=== PATIENT | male | born 1955 | race Caucasian/White ===

== ENCOUNTER 2022-11-21 12:53 | Emergency (ER) | payer BC, SELFPAY ==
[2022-11-21 12:53] VITALS: BP 167/113; PULSE 78; RESP 18; TEMP 36.1; O2SAT 95; BMI 28.7
--- NOTE | 2022-11-21 14:45 | VDLE_ITS ---
Reason For Study: Swelling RIGHT GSV is normal. CFV is compressible, spontaneous, phasic, competent and demonstrates normal augmentation. FV is compressible, spontaneous, phasic, competent and demonstrates normal augmentation. POP V is compressible, spontaneous, phasic, competent and demonstrates normal augmentation. T/P Trunk is compressible. PTV is compressible. RT PerV is compressible. Nonvascularized structure noted in the proximal calf muscle at area of pain that measures 0.50 x 1.2 cm. Procedure This is a venous duplex using B-mode, color flow and spectral Doppler. Exam performed portable in ED. A preliminary report was called and/or faxed to ED RN. VL/Venous Duplex US, Unilateral Interpretation Summary Deep veins of the right lower extremity are patent and compressible segmentally . There is no evidence of right lower extremity deep vein thrombosis. The right great sapheno us vein appears patent and compressible segmentally. Nonvascularized structure noted in the proximal calf muscle at area of pain ovidio t measures 0.50 x 1.2 cm. Ordering Physician: Joan Cm Referring Physician: Martín Pillai Performed By: hCeryl Blood RVT
--- NOTE | 2022-11-21 14:57 | EX.ED.DYSGE1 ---
HPI History of Present Illness Chief Complaint: Lower Extremity Injury Detail of Chief Complaint: Right leg pain and swelling Informant: patient Onset/Context/Timing Onset: Weeks Context: Gradual Onset Narrative Narrative: Patient presents with a 1 week history of right leg pain and swelling. He states he actually flew to [place] around November 03. While there he had some intermittent calf pain. Flying back around the or so he had increased right leg pain. He denies chest pain or shortness of breath. He states he has been taking daily aspirin since noting the leg pain. [facility] Medical History (Updated 11/21/22 @ 15:[address] Joan Cm MD) Hx of gastroesophageal reflux (GERD) Medical History no medical history Home Medications ciprofloxacin HCl 500 mg tablet 500 mg PO BID ##20 03/05/14 [Rx Last Taken Unknown] metronidazole 500 mg tablet 500 mg PO Q6H #40 tabs 03/05/14 [Rx Last Taken Unknown] oxycodone-acetaminophen 5 mg-325 mg tablet 1 - 2 tab PO Q4H PRN PRN Pain #20 tabs 03/05/14 [Rx Last Taken Unknown] Allergy/AdvReac Type Severity Reaction Status Date / Time No Known Allergies Allergy Verified 11/21/22 13:50 Surgical History (Updated 11/21/22 @ 14:[address] Joan mC MD) H/O right knee surgery Social History Smoking Status: Former smoker ROS ROS ED Constitutional Constitutional ED: Denies chills or fever(s) Eyes Eyes: Denies change in vision or discharge from eye(s) ENT ENT ED: Denies discharge from eye(s), rhinorrhea or sore throat Cardiovascular Cardiovascular: Denies chest pain or palpitations Respiratory/Chest Respiratory/Chest: Denies cough or dyspnea Gastrointestinal Gastrointestinal: Denies abdominal pain, nausea or vomiting Musculoskeletal Musculoskeletal: Reports extremity pain; Denies back pain Integumentary Denies Abrasions or rash Neurologic Neurologic: Denies headache(s) or weakness Psychiatric Psychiatric: Denies anxiety or depression Allergic/Immunologic Allergic/Immunologic ED: Denies lip swelling or urticaria EXAM Physical Exam Const Vital Signs: 11/21/22 12:53 Temperature 97 F L Temperature Source Temporal Pulse Rate 78 Respiratory Rate 18 Blood Pressure 167/113 H Blood Pressure Mean 131 Pulse Ox 95 Oxygen Delivery Method Room Air Positive well nourished and well developed General Appearance ED: well developed HEENT Reports normocephalic and head/scalp atraumatic Eyes PERRL and EOMs intact bilaterally Neck supple Chest Wall inspection of chest normal and palpation of chest normal Resp normal respiratory effort and clear to auscultation bilaterally Cardio regular rate and regular rhythm GI normal to inspection, nondistended, normoactive bowel sounds Palpation: soft Extremity normal to inspection Extremity Narrative: No significant right lower extremity edema. Vessels in the right foot are slightly less prominent when compared to the left. Mild calf tenderness with palpation. No palpable cords. Strong distal pulses with normal sensation and good range of motion. Neuro oriented x3 and no sensory deficits noted Sensorium / Orientation: alert Motor Exam: strength 5/5 throughout Psych mental status grossly normal Skin no rashes or lesions noted MDM MDM MDM Narrative Medical decision making narrative: Venous ultrasound of the right lower extremity obtained. I am advised by nursing staff that the tech reported no evidence of DVT. Patient will be reassured and follow-up instructions given. Discharge Plan Triage Chief Complaint: Lower Extremity Injury ED Provider: Joan Cm Dx/Rx/DC Orders Clinical Impression: Edema, Strain of right calf muscle Instructions: ED Peripheral Edema, Unilateral Prescriptions: No Action metronidazole 500 MG tablet 500 mg PO Q6H Qty: 40 0RF ciprofloxacin HCl 500 MG tablet 500 mg PO BID Qty: 20 0RF oxycodone-acetaminophen 1 TABLET tablet 1 - 2 tab PO Q4H PRN PRN (Reason: Pain) Qty: 20 0RF Primary Care Provider: Martín Pillai Referrals: Martín Pillai MD [Primary Care Provider] - 1 Week if not improving Disposition Disposition: Home, Self Care
== END 2022-11-21 15:32 | disposition home or self-care (01) ==
PROVIDERS: Emergency Provider Emergency Medicine; PCP Family Medicine; Visit Provider Emergency Medicine
DX: S86.111A Strain of other muscle(s) and tendon(s) of posterior muscle group at lower leg level, right leg, initial encounter (principal); R60.0 Localized edema; Z87.891 Personal history of nicotine dependence; X58.XXXA Exposure to other specified factors, initial encounter
CPT/HCPCS: 93971; 99282

== ENCOUNTER 2023-09-07 07:58 | Day surgery (SDC) | payer BC, SELFPAY ==
[2023-09-07 08:15] VITALS: BP 169/134; PULSE 75; RESP 16; TEMP 36.2; O2SAT 97
[2023-09-07] MEDS: Lidocaine Jelly 2% 20 ML Syringe (URO-JET) 1 APPLIC (08:19)
== END 2023-09-07 08:45 | disposition home or self-care (01) ==
LOC: EN 08:01
PROVIDERS: PCP Family Medicine; Referring Provider Family Medicine; Visit Provider Surgery
PROC: F00ZJWZ Instrumental Swallowing and Oral Function Assessment using Swallowing Equipment (ICD-10-PCS; CPT 43235; principal; 2023-09-07 07:55)
DX: K21.9 Gastro-esophageal reflux disease without esophagitis (principal)
CPT/HCPCS: 91010

== ENCOUNTER 2023-09-14 08:54 | Day surgery (SDC) | payer BC, SELFPAY ==
--- NOTE | 2023-09-14 | GASB_PTH ---
PATHOLOGY RESULTS PATIENT: MARCOS ANDRE LOC: EN U#:[id number] AGE/SX: 68/M ROOM: RE09/14/[address]: Dr. Shyam Teran MD : 1955 BED: DIS: 09/14/2023 SPEC #: [id number] RECD: 09/14/23 13:13 STATUS: DARRIN REDimitris #: [id number] LACI: 09/14/23 00:[address]: Shyam Teran DEPT: SURGICAL PATHOLOGY RECD BY: Mark Martinez ENTERED: 09/14/23 13:14 SP TYPE: Gastric Bx OTHR DR: Dr. Martín Pillai MD Tissues: Gastric mucous membrane Cecum, NOS Rectum, NOS Procedures: Special Stain Group II Surgery Specimen Level IV Alcian Blue/PAS (control) HEADER OPERATION: Colonoscopy, EGD, PH probe placement, biopsy, polypectomy PRE-OP DIAGNOSIS: Rectal mass, GERD TISSUE SUBMITTED: A - Gastroesophageal junction biopsy, B - Polyp cecum, C - Polyp rectum MICROSCOPIC DIAGNOSIS A. Gastroesophageal junction, biopsy: Fragments of gastroesophageal mucosa with chronic inflammation. Intestinal metaplasia (goblet cell metaplasia) not identified. See comment. B. Polyp cecum, polypectomy: Tubular adenoma. C. 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 See comment. SJ:rg 09/17/2023 COMMENT A. Alcian blue/PAS stain with matched control is used in the evaluation of the specimen. Correlation with clinical, endoscopic findings and appropriate follow up are necessary. MICROSCOPIC DESCRIPTION Slides are reviewed. GROSS DESCRIPTION A - Received in fixative is one container labeled with the patient's name and designated GE junction biopsy. The specimen consists of two irregular fragments of light anderson soft tissue that in aggregate measure 0.6 x 0.4 x 0.1 cm. The specimen is totally submitted in one cassette. B - Received in fixative is one container labeled with the patient's name and designated polyp cecum. The specimen consists of a pink-red polyp measuring 1.0 x 0.8 x 0.6 cm. The presumed base is inked. The polyp is bisected and submitted entirely in one cassette. C - Received in fixative is one container labeled with the patient's name and designated polyp rectum. The specimen consists of two cauliflower-like pink polyps measuring 3.0 x 3.0 x 3.0 cm and 2.0 x 2.0 x 1.5 cm. Also present in the container are multiple fragments of anderson-pink soft tissue measuring in aggregate 2.5 x 2.0 x 0.3 cm. Sections of the larger polyps shows a threat in the center of the polyp. The smaller polyp is bisected and the larger polyp is serially sectioned. The entire specimen is submitted in ten cassettes as follows: 1 - smaller fragments of tissue, 2 & 3 - small polyp, 4-10 - larger polyp. / ANISHA:fariba 09/14/2023 TC:1 CPT: 07049 x3, 62122
[2023-09-14 09:17] VITALS: BP 137/89; PULSE 79; RESP 16; TEMP 36.6; O2SAT 97; BMI 28.2
[2023-09-14] MEDS: Lactated Ringers 1,000 ML 15 ML IV (09:20)
--- NOTE | 2023-09-14 09:51 | HP.PCM_ITS ---
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 Shyam Teran MD) Hx of gastroesophageal reflux (GERD) Surgical History (Updated 06/22/23 @ 14:06 by Marianela Ferguson) H/O right knee surgery History of cystoscopy Family History (Updated 06/22/23 @ 14:12 by Marianela Ferguson) Other Colon cancer Hypertension Social History (Updated 06/22/23 @ 14:07 by Marianela Ferguson) Smoking Status: Former smoker how long ago did patient quit smoking: ~1992 alcohol intake: current additional social history: Occasional Aspirin use. Daily Ibuprofen use. HPI HPI HPI: Patient is here for 2 reasons. The patient reports that he has severe acid reflux and cannot go more than 2 days without his PPI. He says he has been on a PPI for years. The patient also reports he feels something prolapsing when he has bowel movements that it feels uncomfortable. He is noting occasional blood. He has never had a colonoscopy. He does not know if this is a hemorrhoid or a rectal mass. ROS General General: No weight change, fatigue, colon cancer or breast cancer HEENT HEENT: No difficulty swallowing, eye injury, eye surgery or swollen glands Endo Endocrine: No thyroid disease, diabetes mellitus or thyroid cancer Skin Skin: No rash or changing moles Musc Musculoskeletal: Yes back problems; No arthritis, rheumatoid arthritis or gout Cardio Cardiovascular: No murmur, pacemaker, heart disease, atrial fibrillation, high blood pressure, heart attack or heart stent Psych Psychiatric: Yes depression and anxiety Resp Respiratory: No shortness of breath, No sleep apnea, No cough, No COPD, No asthma and No emphysema Gastro Gastrointestinal: No abdominal pain, No nausea or vomiting, No diarrhea, No constipation, Yes blood in stool, Yes acid reflux, No ulcers, No gallbladder problem and No black,tarry stools Ryan Hematologic: No blood thinners, No blood disorders, No bleeding, No anemia and No blood clots Neuro Neurologic: No numbness and No tingling Exam Const General: cooperative Orientation: alert and oriented x3 HENMT Head: normal to inspection Neck Neck: normal visual inspection and full ROM Chest Chest palpation & inspection: normal inspection of the chest Resp Effort & Inspection: normal respiratory effort Auscultation: clear to auscultation bilaterally Cardio Rate: regular rate Rhythm: regular rhythm GI Inspection: non-distended Palpation: soft and nontender Skin General: no rashes or lesions noted Neuro General: patient alert and patient oriented x3 Extrem General: full ROM Psych Appearance: grossly normal Mental Status: mental status grossly normal Assessment and Plan Assessment and Plan (1) Rectal mass: Status: Acute Plan: The patient's rectal exam was normal. I did not feel any firm areas on anal exam or rectal exam. It is possible that the patient is having a prolapsing rectum versus prolapsing hemorrhoid. The patient is also never had a colonoscopy. I recommend that he have a colonoscopy to evaluate the colon and to evaluate if he has hemorrhoids. (2) GERD (gastroesophageal reflux disease): Status: Acute Qualifiers: Esophagitis presence: esophagitis presence not specified Qualified Code(s): K21.9 - Gastro-esophageal reflux disease without esophagitis Plan: The patient has severe GERD and I briefly discussed Xavi fundoplication with him. He is interested. He is going to go home and discuss with his and discuss if he would like to proceed with a EGD or EGD with pH probe and manometry. I explained endoscopy in detail to the patient. I explained the risks including but not limited to stroke or heart attack with anesthesia, perforation of the GI tract, bleeding, infection. I explained that any of these could necessitate further emergency surgery. The patient understands and all questions were answered sufficiently. The patient wishes to proceed with procedure. Shyam Teran MD Pager: [facility] [address] [place] [address] [address] [place] [address] Office: I have examined the patient and the H&P has been reviewed. There are no clinical changes since date of exam. The patient has held his PPI before the procedure. He did want to have pH probe today with his EGD.
[2023-09-14 10:53] VITALS: BP 87/5; BP 87/51; PULSE 71; RESP 20; TEMP 36.3; O2SAT 89
[2023-09-14 10:55] VITALS: BP 78/59; BP 87/51; PULSE 71; RESP 14; O2SAT 94
[2023-09-14 10:56] VITALS: BP 112/77; BP 87/51; PULSE 75; RESP 20; O2SAT 92
[2023-09-14 11:00] VITALS: BP 112/77; BP 87/51; PULSE 66; RESP 18; O2SAT 94
[2023-09-14 11:14] VITALS: BP 123/78; BP 87/51; PULSE 75; RESP 18; TEMP 36.2; O2SAT 94
--- NOTE | 2023-09-14 11:20 | OP.CCLET_ITS ---
09/14/2023 Martín Pillai MD [address] [place] [address] Re : Upper GI endoscopy procedure for Tio Echols Dear Dr. Pillai This procedure was performed on Thursday, September 14, 2023. My impressions and recommendations are as follows: Impressions : - Normal esophagus. - Normal stomach. - Normal examined duodenum. - The ASHRAF pH capsule was positioned 34 cm from the incisors, which was 6 cm proximal to the GE junction. - Biopsies were taken with a cold forceps for histology at the gastroesophageal junction. Recommendations : - Discharge patient to home. - Resume previous diet. - Continue present medications. - Await pathology results. - Return to my office in 1 week. My findings are described in the full procedure note, which is enclosed. If I can be of further assistance, please feel free to contact me at Doctor phone number(s): , Work: . Sincerely, Shyam Teran MD 09/14/2023 11:19:29 AM This report has been signed electronically.
--- NOTE | 2023-09-14 11:20 | OP.EGD_ITS ---
Patient Name: Tio Echols Procedure Date: 09/14/2023 9:52 AM Date of : 1955 Age: 68 Procedure: Upper GI endoscopy Indications: Esophageal reflux Providers: Shyam Teran MD Medicines: Monitored Anesthesia Care Patient Profile: This is a 68 year old male. Refer to note in patient chart for documentation of history and physical. Complications: No immediate complications. Estimated blood loss: Minimal. Procedure: Pre-Anesthesia Assessment: - Prior to the procedure, a History and Physical was performed, and patient medications and allergies were reviewed. The patient's tolerance of previous anesthesia was also reviewed. The risks and benefits of the procedure and the sedation options and risks were discussed with the patient. All questions were answered, and informed consent was obtained. Prior Anticoagulants: The patient has taken no anticoagulant or antiplatelet agents. After reviewing the risks and benefits, the patient was deemed in satisfactory condition to undergo the procedure. After obtaining informed consent, the endoscope was passed under direct vision. Throughout the procedure, the patient's blood pressure, pulse, and oxygen saturations were monitored continuously. The Endoscope was introduced through the mouth, and advanced to the fourth part of duodenum. The upper GI endoscopy was accomplished without difficulty. The patient tolerated the procedure well. Scope In: 10:10:03 AM Scope Out: 10:17:24 AM Total Procedure Duration Time 0 hours 7 minutes 21 seconds Findings: The esophagus was normal. The examined duodenum was normal. The ASHRAF capsule with delivery system was introduced through the mouth and advanced into the esophagus, such that the ASHRAF pH capsule was positioned 34 cm from the incisors, which was 6 cm proximal to the GE junction. Suction was applied to the well of the ASHRAF pH capsule to suck in the adjacent mucosa of the esophagus using the external vacuum pump set at a minimum vacuum pressure of 550 mmHg for 30 seconds. The ASRHAF pH capsule was then deployed by depressing the plunger on top of the handle to advance the locking pin into the mucosa, thereby attaching the capsule to the esophagus. The plunger was then rotated a quarter turn clockwise to release the capsule from the delivery system. The delivery system was then withdrawn. Endoscopy was utilized for probe placement and diagnostic evaluation. Biopsies were taken with a cold forceps at the gastroesophageal junction for histology. A small hiatal hernia was present. Impression: - Normal esophagus. - Normal stomach. - Normal examined duodenum. - The ASHRAF pH capsule was positioned 34 cm from the incisors, which was 6 cm proximal to the GE junction. - Biopsies were taken with a cold forceps for histology at the gastroesophageal junction. Recommendation: - Discharge patient to home. - Resume previous diet. - Continue present medications. - Await pathology results. - Return to my office in 1 week. Procedure Code(s): --- Professional --- 99080, Esophagogastroduodenoscopy, flexible, transoral; with biopsy, single or multiple Diagnosis Code(s): --- Professional --- K21.9, Gastro-esophageal reflux disease without esophagitis CPT copyright 2021 [employer]. All rights reserved. The codes documented in this report are preliminary and upon gas specialist review may be revised to meet current compliance requirements. Shyam Teran MD 09/14/2023 11:19:29 AM This report has been signed electronically. Number of Addenda: 0 Note Initiated On: 09/14/2023 9:52 AM
--- NOTE | 2023-09-14 11:22 | OP.COLON_ITS ---
Patient Name: Tio Echols Procedure Date: 09/14/2023 10:19 AM Date of : 1955 Age: 68 Procedure: Colonoscopy Indications: Rectal mass Providers: Shyam Teran MD Medicines: Monitored Anesthesia Care Patient Profile: This is a 68 year old male. Refer to note in patient chart for documentation of history and physical. Last Colonoscopy: none. The patient's first colonoscopy is today. Complications: No immediate complications. Estimated blood loss: Minimal. Procedure: Pre-Anesthesia Assessment: - Prior to the procedure, a History and Physical was performed, and patient medications and allergies were reviewed. The patient's tolerance of previous anesthesia was also reviewed. The risks and benefits of the procedure and the sedation options and risks were discussed with the patient. All questions were answered, and informed consent was obtained. Prior Anticoagulants: The patient has taken no anticoagulant or antiplatelet agents. After reviewing the risks and benefits, the patient was deemed in satisfactory condition to undergo the procedure. After I obtained informed consent, the scope was passed under direct vision. Throughout the procedure, the patient's blood pressure, pulse, and oxygen saturations were monitored continuously. The Colonoscope was introduced through the anus and advanced to the cecum, identified by appendiceal orifice and ileocecal valve. The colonoscopy was performed without difficulty. The patient tolerated the procedure well. The quality of the bowel preparation was good. The ileocecal valve, appendiceal orifice, and rectum were photographed. Scope In: 10:20:38 AM Scope Withdrawal Time 0 hours 22 minutes 32 seconds Scope Out: 10:46:52 AM Total Procedure Duration Time 0 hours 26 minutes 14 seconds Findings: A medium polyp was found in the cecum. The polyp was removed with a hot snare. Resection and retrieval were complete. A large polyp was found in the distal rectum. The polyp was semi-pedunculated. Polypectomy was attempted, initially using a large endoloop and hot snare. The large endoloop was maneuvered over the polyp stalk and closed at the mucosal attachment (prior to using the hot snare) in order to prevent bleeding. Polyp resection was incomplete with a piecemeal technique using the hot snare. This intervention then required a different device and polypectomy technique. The polyp was removed with a hot snare. Resection and retrieval were complete. Impression: - One medium polyp in the cecum, removed with a hot snare. Resected and retrieved. - One large polyp in the distal rectum, removed with a hot snare. Resected and retrieved. Recommendation: - Discharge patient to home. - Resume previous diet. - Continue present medications. - Await pathology results. - Repeat colonoscopy after studies are complete for surveillance based on pathology results. - Return to GI office in 1 week. Procedure Code(s): --- Professional --- 48202, Colonoscopy, flexible; with removal of tumor(s), polyp(s), or other lesion(s) by snare technique Diagnosis Code(s): --- Professional --- D12.0, Benign neoplasm of cecum D12.8, Benign neoplasm of rectum K62.89, Other specified diseases of anus and rectum CPT copyright 2021 [employer]. All rights reserved. The codes documented in this report are preliminary and upon cartography supervisor review may be revised to meet current compliance requirements. Shyam Teran MD 09/14/2023 11:22:27 AM This report has been signed electronically. Number of Addenda: 0 Note Initiated On: 09/14/2023 10:19 AM
--- NOTE | 2023-09-14 11:23 | OP.CCLET_ITS ---
09/14/2023 Martín Pillai MD [address] [place] [address] Re : Colonoscopy procedure for Tio Echols Dear Dr. Pillai This procedure was performed on Thursday, September 14, 2023. My impressions and recommendations are as follows: Impressions : - One medium polyp in the cecum, removed with a hot snare. Resected and retrieved. - One large polyp in the distal rectum, removed with a hot snare. Resected and retrieved. Recommendations : - Discharge patient to home. - Resume previous diet. - Continue present medications. - Await pathology results. - Repeat colonoscopy after studies are complete for surveillance based on pathology results. - Return to GI office in 1 week. My findings are described in the full procedure note, which is enclosed. If I can be of further assistance, please feel free to contact me at Doctor phone number(s): , Work: . Sincerely, Shyam Teran MD 09/14/2023 11:22:27 AM This report has been signed electronically.
== END 2023-09-14 12:01 | disposition home or self-care (01) ==
LOC: EN 08:55 → AC 08:56
PROVIDERS: PCP Family Medicine; Referring Provider Family Medicine; Visit Provider Surgery
PROC: 0DJD8ZZ Inspection of Lower Intestinal Tract, Via Natural or Artificial Opening Endoscopic (ICD-10-PCS; CPT 45378; principal; 2023-09-14 09:55)
DX: D12.8 Benign neoplasm of rectum (principal); D12.0 Benign neoplasm of cecum; K21.00 Gastro-esophageal reflux disease with esophagitis, without bleeding; K44.9 Diaphragmatic hernia without obstruction or gangrene; Z87.891 Personal history of nicotine dependence; Z80.0 Family history of malignant neoplasm of digestive organs
CPT/HCPCS: 43239; 45385; 88305; 88313; J7120; J2405

== ENCOUNTER 2023-10-26 12:21 | Observation (INO) | payer BC, SELFPAY ==
--- NOTE | 2023-10-19 08:11 | EKG12_ITS ---
Test Reason : PRE OP Blood Pressure : / mmHG Vent. Rate : 063 BPM Atrial Rate : 063 BPM P-R Int : 162 ms QRS Dur : 088 ms QT Int : 394 ms P-R-T Axes : 022 -27 021 degrees QTc Int : 403 ms Normal sinus rhythm Normal ECG Confirmed by RUFINO DAVIS, TATYANA ([id number]), loan expeditor CON GRAF ([id number]) on 10/19/2023 10:39:49 AM Referred By: Shyam Teran Confirmed By:TATYANA JOY MD
[2023-10-26] VITALS (13 sets, daily range): BP systolic 137–185; BP diastolic 85–109; PULSE 65–117; RESP 14–18; TEMP 36.6–37; O2SAT 84–97; BMI 29.0
--- NOTE | 2023-10-26 06:31 | HP.PCM_ITS ---
History and Physical Date of Admission: 10/26/23 Intake Vital Signs 09/14/2408:17 09/25/2413:49 Height 5 ft 8 in 5 ft 8 in Respiration 16 Intake Visit Reasons: Discuss Hernia Surgery Chief Complaint: manometry Hospital Medical Assistant Required: No Is patient in pain?: No Allergies No Known Allergies Allergy (Verified 09/25/23 14:48) Medications ibuprofen 200 mg tablet 200 mg PO Q6H PRN pain 06/22/23 [History Confirmed 09/25/23] lansoprazole 30 mg capsule,delayed release (Prevacid) 30 mg PO DAILY 06/22/23 [History Confirmed 09/25/23] multivitamin 1 tab PO DAILY 06/22/23 [History Confirmed 09/25/23] PFSH Medical History Back pain Depression Former smoker Hepatitis Hiatal hernia History of diverticulitis History of pain when walking Hx of gastroesophageal reflux (GERD) Wears glasses Surgical History H/O right knee surgery History of cystoscopy Family History Other Colon cancer Hypertension Social History Smoking Status: Former smoker how long ago did patient quit smoking: ~1992 alcohol intake: current additional social history: Occasional Aspirin use. Daily Ibuprofen use. HPI HPI HPI: Patient is here for follow-up after having EGD and manometry. ROS General General: No weight change, fatigue, colon cancer or breast cancer HEENT HEENT: No difficulty swallowing, eye injury, eye surgery or swollen glands Endo Endocrine: No thyroid disease, diabetes mellitus or thyroid cancer Skin Skin: No rash or changing moles Musc Musculoskeletal: Yes back problems; No arthritis, rheumatoid arthritis or gout Cardio Cardiovascular: No murmur, pacemaker, heart disease, atrial fibrillation, high blood pressure, heart attack or heart stent Psych Psychiatric: Yes depression and anxiety Resp Respiratory: No shortness of breath, No sleep apnea, No cough, No COPD, No asthma and No emphysema Gastro Gastrointestinal: No abdominal pain, No nausea or vomiting, No diarrhea, No constipation, Yes blood in stool, Yes acid reflux, No ulcers, No gallbladder problem and No black,tarry stools Ryan Hematologic: No blood thinners, No blood disorders, No bleeding, No anemia and No blood clots Neuro Neurologic: No numbness and No tingling Exam Const General: cooperative Orientation: alert and oriented x3 HENMT Head: normal to inspection Neck Neck: normal visual inspection and full ROM Chest Chest palpation & inspection: normal inspection of the chest Resp Effort & Inspection: normal respiratory effort Auscultation: clear to auscultation bilaterally Cardio Rate: regular rate Rhythm: regular rhythm GI Inspection: non-distended Palpation: soft and nontender Skin General: no rashes or lesions noted Neuro General: patient alert and patient oriented x3 Extrem General: full ROM Psych Appearance: grossly normal Mental Status: mental status grossly normal Assessment and Plan Assessment and Plan (1) GERD (gastroesophageal reflux disease): Status: Acute Qualifiers: Esophagitis presence: esophagitis presence not specified Qualified Code(s): K21.9 - Gastro-esophageal reflux disease without esophagitis Plan: The patient did have a large rectal polyp that was removed. 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 We will repeat colonoscopy in 1 year due to piecemeal resection. The patient is also here to discuss Xavi fundoplication. The patient had an EGD with pH probe which was abnormal. The patient showed several instances of reflux and had a high DeMeester score. The patient had manometry which was normal. I recommend Xavi fundoplication with hiatal hernia repair. I discussed this with him and his in detail. We had a long discussion about the details of the surgery and postoperative care and we discussed the risks including but not limited to bleeding, infection, injury to other organ such as the esophagus or liver or spleen. I also discussed the risk of gas bloat syndrome and recurrence. I also discussed the risk of dysphagia. Patient understands all the risks and is willing to proceed with laparoscopic hiatal hernia repair with Xavi fundoplication. Shyam Teran MD Pager: [facility] [address] [place] [address] [address] [place] [address] Office: I have examined the patient and the H&P has been reviewed. There are no clinical changes since date of exam.
[2023-10-26] MEDS: Lactated Ringers 1,000 ML 15 ML IV (06:39)
[2023-10-26] MEDS: Cefotetan 2 GM in 0.9% NS 100 ML IV (07:50)
[2023-10-26] MEDS: 0.9% Normal Saline (1000mL) 1,000 ML 30 ML IV (10:00)
[2023-10-26] MEDS: Bupiv/Epi 0.25% 30 ML Vial (11:15)
--- NOTE | 2023-10-26 11:44 | EKG12_ITS ---
Test Reason : POST OP Blood Pressure : / mmHG Vent. Rate : 091 BPM Atrial Rate : 091 BPM P-R Int : 156 ms QRS Dur : 096 ms QT Int : 388 ms P-R-T Axes : 024 -28 000 degrees QTc Int : 477 ms Normal sinus rhythm Normal ECG When compared with ECG of 19-OCT-2023 08:16, QT has lengthened Confirmed by Davian Mayers ([id number]), science editor CON GRAF ([id number]) on 10/30/2023 7:45:27 AM Referred By: Shyam Teran Confirmed By:Davian Mayers
[2023-10-26 12:05] LABS: Absolute Lymphocyte Count 0.97 X10^3/uL (0.83-4.51); Basophil# 0.07 X10^3/uL; Basophil% 0.6 % (0-1); Eosinophil# 0.01 X10^3/uL; Eosinophils% 0.1 % (0-5); Hematocrit 46.1 % (40-54); Hemoglobin 15.1 g/dL (13.0-16.5); Lymphocyte # 0.97 X10^3/ul (0.83-4.51); Lymphocyte % 7.8 % (19-41); Mean Corp Hgb Conc 32.8 g/dL (32-36); Mean Corpuscular Hgb 28.2 pg (27.0-32.0); Mean Platelet Vol. 9.2 fl (6.2-12.0); Monocyte# 0.33 X10^3/uL; Monocyte% 2.6 % (0-10); NRBC Flagged by Analyzer 0 % (0-5); Neutrophil # 10.98 X10^3/uL (2.7-7.7); Neutrophil % 87.8 % (47-70); Platelet Count 168 K/mm3 (150-450); RBC Distribution Width CV 13.3 % (11.6-14.6); RBC Distribution Width SD 41.2 fl (35.1-43.9); Red Blood Count 5.36 M/mm3 (4.6-6.2); White Blood Count 12.5 K/mm3 (4.4-11.0)
--- NOTE | 2023-10-26 12:11 | SUR.PHASEI ---
DR NASH AT BEDSIDE EDUCATING PATIENT SHOULDER PAIN D/T REFERRED PAIN FROM DIAPHRAGM S/P LAPAROSCOPIC PROCEDURE. CBC, TROPONIN SENT STAT TO LAB, EKG OBTAINED.
[2023-10-26 12:27] LABS: Troponin-I HS 5 pg/mL (3.0-78.0)
[2023-10-26] MEDS: 0.9% Normal Saline (1000mL) 1,000 ML 100 ML IV ×2 (14:09→23:10)
--- NOTE | 2023-10-26 16:56 | OP.PCM_ITS ---
Report of Operation Date of Procedure: 10/26/23 Pre-Operative Diagnosis: GERD Post-Operative Diagnosis: Same Surgery/Procedure Performed:: Laparoscopic hiatal hernia repair with Xavi fundoplication EGD Type of Anesthesia: General/Regional Specimen's removed: None Estimated Blood Loss (mL): 400 Description of Procedure: Patient was brought back to the operating room and general anesthesia was induced. The abdomen was prepped and draped in usual sterile fashion. An incision was made superior to the umbilicus and deepened to the fascia. The fascia was elevated and incised. A port was placed into the abdomen and the abdomen was insufflated to 15 mmHg. Next an epigastric incision was made and the [place] liver retractor was placed into the abdomen under direct visualization and used to elevate the left lobe of liver. The hiatus was identified and the patient did have a hiatal hernia. The areolar tissue over the left lobe of the liver was divided until the right crura was identified. The right crura was skeletonized and then an opening was developed behind the esophagus across to the other side. Next the short gastrics were taken down using harmonic scalpel. There was bleeding encountered at the splenic vein as the stomach was tightly adherent to the spleen and during dissection one of the small gastric vessels avulsed from the splenic vein. Pressure was held and the area was grasped and a titanium clip was placed over the stump of the side vessel. Fibrillar and hemoblast were used and the area was packed. Once dissection was carried out to the left crura the left pleura skeletonized as well and then a [place] was placed around the esophagus and this was used to create traction inferiorly. The anterior esophagus was dissected free and then the mediastinum was inspected and the dissection was carried superiorly into the mediastinum to free up the esophagus circumferentially. Both vagus nerves were identified and spared. Next the crura was reapproximated using 0 Surgidac. Next the NG was removed and a bougie 56 [place] was placed by anesthesia into the esophagus and down into the stomach under direct visualization. Next the stomach was wrapped around behind the esophagus and brought up to connect to itself. Next using 0 Surgidac interrupted sutures the stomach was plicated to itself. The most superior suture also included the crura and the esophagus. Next the area was irrigated and suctioned dry. EGD was performed. A well- lubricated scope was placed down the mouth and down the esophagus into the stomach. There was no resistance crossing the GE junction. There was some blood in the stomach. The scope was retroflexed and the wrap appeared in good shape. The stomach was irrigated copiously and no active bleeding was identified. The stomach was filled with air and the abdomen was filled with irrigation and there was no bubble for the leak test. Next the scope was used to suction out all urine the scope was removed. The left upper quadrant was inspected and irrigated and suctioned. Hemostasis was obtained using small titanium clips. There was good hemostasis at the end of the case. The ports were removed. The midline fascia was closed with 0 Vicryl suture in a [id number] fashion. The skin incisions were injected with local anesthetic and closed with interrupted 4-0 Monocryl sutures. Steri-Strips and bandages were applied. Patient was awoken and taken to PACU in stable condition. He did have a straight catheterization at the end of the case due to the length of the case. Hemoglobin will be checked after the case and again this evening and again in the morning. Complications Bleeding from splenic vein that was controlled with clips and hemoblast and fibrillar. Admit VTE Documentation VTE Mechan Device Prophylaxis: SCD's
[2023-10-26] MEDS: Acetaminophen 650 MG/20 ML UDC PO ×2 (17:00→23:08)
[2023-10-26 17:57] LABS: Hematocrit 45.5 % (40-54); Hemoglobin 15.7 g/dL (13.0-16.5)
[2023-10-27 02:31] VITALS: BP 140/72; PULSE 101; RESP 16; TEMP 36.9; O2SAT 92
[2023-10-27 05:21] VITALS: BP 164/93; PULSE 99; RESP 16; TEMP 37.1; O2SAT 93
[2023-10-27 08:28] LABS: Absolute Lymphocyte Count 1.14 X10^3/uL (0.83-4.51); Absolute Neutrophil Count 8.1 X10^3/uL (2.0-7.7); Basophil# 0.02 X10^3/uL; Basophil% 0.2 % (0-1); Eosinophil# 0.01 X10^3/uL; Eosinophils% 0.1 % (0-5); Hematocrit 42.6 % (40-54); Hemoglobin 14.4 g/dL (13.0-16.5); Lymphocyte # 1.14 X10^3/ul (0.83-4.51); Lymphocyte % 11.1 % (19-41); Mean Corp Hgb Conc 33.8 g/dL (32-36); Mean Corpuscular Hgb 28.3 pg (27.0-32.0); Mean Corpuscular Volume 83.9 fL (80-94); Mean Platelet Vol. 9.4 fl (6.2-12.0); Monocyte# 0.95 X10^3/uL; Monocyte% 9.2 % (0-10); NRBC Flagged by Analyzer 0 % (0-5); Neutrophil # 8.11 X10^3/uL (2.7-7.7); Neutrophil % 78.7 % (47-70); Platelet Count 169 K/mm3 (150-450); RBC Distribution Width CV 13.4 % (11.6-14.6); RBC Distribution Width SD 41.5 fl (35.1-43.9); Red Blood Count 5.08 M/mm3 (4.6-6.2); White Blood Count 10.3 K/mm3 (4.4-11.0)
[2023-10-27 08:45] VITALS: BP 156/104; PULSE 88; RESP 16; TEMP 36.6; O2SAT 94
[2023-10-27 08:56] LABS: Anion Gap 3 (5-15); BUN 16 mg/dL (7-18); BUN/Creat Ratio 15.1 RATIO (10-20); Calcium,Total 8.4 mg/dL (8.5-10.1); Chloride 112 mmol/L (98-107); Creatinine, Serum 1.06 mg/dL (0.70-1.30); EST Glomerular Filtration Rate 74 mL/min (>60); Est Glom Filt Rate - Afr Amer 89 mL/min (>60); Estimated Creatinine Clearance 72.43 ml/min; Glucose 123 mg/dL (74-106); Potassium 3.9 mmol/L (3.5-5.1); Sodium Level 140 mmol/L (136-145)
--- NOTE | 2023-10-27 10:01 | PCM.PN.SRG ---
Subjective Subjective Patient does not report much abdominal pain only if he is bending over. He says there is a little bit of pain in the left upper quadrant. He denies any nausea or vomiting overnight. He only says he has a sore throat this morning. His pain has been tolerable on liquid Tylenol Objective Data Objective Data Vital Signs: Vital Signs Temp Pulse Resp BP Pulse Ox O2 Del Method O2 Flow Rate 98 F 88 16 156/104 H 94 Room Air 4 10/27/23 08:45 10/27/23 08:45 10/27/23 08:45 10/27/23 08:45 10/27/23 08:45 10/27/23 08:45 10/26/23 12:51 Oxygen Flow Rate (L/min) 4 Oxygen Delivery Method Room Air Weight: 191 lb 2.252 oz Body Mass Index (BMI) 29.0 Intake & Output: Intake and Output for Last 24 Hours 10/25/23 10/26/23 10/27/23 23:59 23:59 23:59 Intake Total 4453.92 / 4453.92 956.67 / 956.67 Output Total 400 / 400 Balance 4053.92 / 4053.92 956.67 / 956.67 Lab / Micro Data 10/27/23 07:56 10/27/23 07:56 Labs: Laboratory Results - last 24 hr 10/26/23 11:55: WBC 12.5 H, RBC 5.36, Hgb 15.1, Hct 46.1, MCV 86.0, MCH 28.2, MCHC 32.8, RDW Std Deviation 41.2, RDW Coeff of Nayely 13.3, Plt Count 168, MPV 9.2, Immature Gran % (Auto) 1.100 H, Neut % (Auto) 87.8 H, Lymph % (Auto) 7.8 L, [place] % (Auto) 2.6, Eos % (Auto) 0.1, Baso % (Auto) 0.6, Absolute Neuts (auto) 11.0 H, Absolute Lymphs (auto) 0.97, Nucleated RBC % 0, Troponin I High Sens 5 10/26/23 17:40: Hgb 15.7, Hct 45.5 10/27/23 07:56: WBC 10.3, RBC 5.08, Hgb 14.4, Hct 42.6, MCV 83.9, MCH 28.3, MCHC 33.8, RDW Std Deviation 41.5, RDW Coeff of Nayely 13.4, Plt Count 169, MPV 9.4, Immature Gran % (Auto) 0.700, Neut % (Auto) 78.7 H, Lymph % (Auto) 11.1 L, [place] % (Auto) 9.2, Eos % (Auto) 0.1, Baso % (Auto) 0.2, Absolute Neuts (auto) 8.1 H, Absolute Lymphs (auto) 1.14, Nucleated RBC % 0, Sodium 140, Potassium 3.9, Chloride 112 H, Carbon Dioxide 25.0, Anion Gap 3 L, BUN 16, Creatinine 1.06, Estim Creat Clear Calc 72.43, Est GFR (MDRD) Af Amer 89, Est GFR (MDRD) Non-Af 74, BUN/Creatinine Ratio 15.1, Glucose 123 H, Calcium 8.4 L Physical Exam Const oriented x3 and no apparent distress Resp normal respiratory effort GI soft to palpation and non-tender Assessment & Plan Assessment/Plan (1) GERD (gastroesophageal reflux disease): QUALIFIERS: Esophagitis presence: esophagitis presence not specified Qualified Code(s): K21.9 - Gastro-esophageal reflux disease without esophagitis PLAN: The patient had Xavi fundoplication yesterday. There was some blood loss from the splenic vein. The hemoglobin appears to be stable this morning. I have ordered him clear liquid diet and advance to full liquids as tolerated. If he tolerates full liquids and is doing well this afternoon I will discharge him home and follow-up with me in a week. I will order repeat hemoglobin for a few days from now. Shyam Teran MD Pager: [facility] [address] [place] [address], [address] [place] [phone] Office:
--- NOTE | 2023-10-27 10:03 | EX.PCM.DISCH ---
Discharge Instructions Diet Discharge Diet: - (Full liquid diet. Pt was provided with diet instructions preop) Activity Discharge Activity: May Drive (in 2-3 days) and May Not Drive Lifting Restrictions: 20 lbs for 4 weeks Dressing / Incision Call your doctor if your incision/area has: Continuous Slow Oozing, Sudden Increased Bleeding, Increased Pain/ Swelling, Increased Redness, Foul Smelling Discharge and Swelling at the incision site Call your doctor if you observe: Fever of 101 or Higher, Inability to have a bowel movement and Uncontrolled pain Change Dressing in: 2 days (Remove clear dressings in 2 days, remove steri strips in 7-10 days) Cleanse incision/area with: Soap & Water Additional Dressing/Incision Instructions:: Get blood work done Sunday or Sunday to check hemoglobin level Follow Up Care Please Follow Up With: Syham Teran MD When: Please call to schedule 1 week follow up appointment. [phone] Test Results: Test results from this visit will be discussed in further detail at your follow-up appointment, if applicable. Discharge Plan Admission Admit Date/Time: 10/26/23 12:21 Attending Provider: Shyam Teran Primary Care Provider: Zahraa Jolly Discharge Orders/Prescriptions Prescriptions: New acetaminophen 650 mg/20.3 mL Solution 650 mg PO Q6H PRN PRN (Reason: Pain 1-10 Or Fever) Qty: 0 0RF Continued multivitamin Tablet 1 tab PO DAILY cholecalciferol (vitamin D3) [Vitamin D3] 25 mcg (1,000 unit) capsule 25 mcg PO DAILY coenzyme Q10 [CoQ-10] 100 mg capsule 100 mg PO DAILY magnesium 250 mg tablet 250 mg PO DAILY Discontinued lansoprazole [Prevacid] 30 mg capsule,delayed release(DR/EC) 30 mg PO DAILY Other Ambulatory Orders: CBC W/Diff, Automated (Routine) Timeframe: 3 Days Facility: [facility] - Location: Laboratory Ordered By: Dr. Shyam Teran Referrals / Follow Up: Martín Pillai MD [Med Staff - Active Staff] - Disposition Disposition (needs filled in before D/C Order can be placed): Home, Self Care
[2023-10-27 11:20] VITALS: BP 161/90; PULSE 82; RESP 16; TEMP 36.5; O2SAT 94
[2023-10-27 14:47] VITALS: BP 177/112; PULSE 96; RESP 16; TEMP 37.2; O2SAT 94
== END 2023-10-27 15:58 | disposition home or self-care (01) ==
LOC: SDC 15:56 → MS3 15:56
PROVIDERS: Anesthesiology; Admitting Provider Surgery; PCP Family Medicine; Referring Provider Surgery; Visit Provider Surgery
PROC: (CPT 43325; principal; 2023-10-26 07:10)
DX: K44.9 Diaphragmatic hernia without obstruction or gangrene (principal); K21.9 Gastro-esophageal reflux disease without esophagitis; Z87.891 Personal history of nicotine dependence; Z79.899 Other long term (current) drug therapy
CPT/HCPCS: 43281; 00790; 36415; 80048; 84484; 85014; 85018; 85025; 86850; 86900; 86901; 86920; 86922; 93005; 94668; 96360; 96361; 99221; 99252; J7030; J7120; G0378; G0463; J2405

== ENCOUNTER → 2023-10-30 | Outpatient (CLI) | payer BC, SELFPAY ==
[2023-10-30 15:23] LABS: Absolute Lymphocyte Count 1.22 X10^3/uL (0.83-4.51); Absolute Neutrophil Count 5.3 X10^3/uL (2.0-7.7); Basophil# 0.08 X10^3/uL; Eosinophil# 0.15 X10^3/uL; Hematocrit 47.8 % (40-54); Hemoglobin 16.4 g/dL (13.0-16.5); Lymphocyte # 1.22 X10^3/ul (0.83-4.51); Mean Corp Hgb Conc 34.3 g/dL (32-36); Mean Corpuscular Hgb 28.1 pg (27.0-32.0); Mean Corpuscular Volume 81.8 fL (80-94); Mean Platelet Vol. 9.2 fl (6.2-12.0); Monocyte# 0.81 X10^3/uL; Monocyte% 10.6 % (0-10); NRBC Flagged by Analyzer 0 % (0-5); Neutrophil # 5.29 X10^3/uL (2.7-7.7); Neutrophil % 69.2 % (47-70); Platelet Count 235 K/mm3 (150-450); RBC Distribution Width CV 12.9 % (11.6-14.6); RBC Distribution Width SD 37.8 fl (35.1-43.9); Red Blood Count 5.84 M/mm3 (4.6-6.2); White Blood Count 7.6 K/mm3 (4.4-11.0)
== END | disposition home or self-care (01) ==
LOC: MTLAB 14:00
PROVIDERS: PCP Family Medicine; Referring Provider Surgery; Visit Provider Surgery
DX: K21.9 Gastro-esophageal reflux disease without esophagitis (principal)
CPT/HCPCS: 36415; 85025

== ENCOUNTER 2024-10-03 07:37 | Day surgery (SDC) | payer MEDICARE, OTHER, SELFPAY ==
[2024-10-03] VITALS (7 sets, daily range): BP systolic 106–138; BP diastolic 79–89; PULSE 69–77; RESP 14–18; TEMP 36.1–36.6; O2SAT 94–100; BMI 27.1
--- NOTE | 2024-10-03 08:19 | PRE.ANES_ITS ---
ASA Classification* ASA Classification ASA Classification: 2 Assessment & Plan Anesthesia* Anesthesia Assessment Anesthesia Assessment: Discussed sedation and/or anesthesia options, risks, benefits, and alternatives with patient/parents/legal guardian/POA. Questions invited. The patient/parents/legal guardian/POA seems to understand and agrees to proceed with anesthesia plan. Reviewed the physical assessment, medical history, allergy history and patient home medications list prior to surgery/procedure/anesthetic and documented any changes. Performed airway and anesthesia risk assessments. Anesthesia Type Anesthesia Type: MAC Anesthesia Focused Assessment* Temperature: 97.3 F Pulse Rate: 69 Blood Pressure: 138/89 Respiratory Rate: 18 Pulse Ox: 100 Airway Assessment Mouth opens: >3 cm Mallampati Score: II Focused Labs Anesthesia Preop lab: CBC WBC 7.6 K/mm3 (4.4-11.0) 10/30/23 14:01 10/30/23 RBC 5.84 M/mm3 (4.6-6.2) 10/30/23 14:01 10/30/23 Hgb 16.4 g/dL (13.0-16.5) 10/30/23 14:01 10/30/23 Hct 47.8 % (40-54) 10/30/23 14:01 10/30/23 Plt Count 235 K/mm3 (150-450) 10/30/23 14:01 10/30/23 CHEMISTRY Potassium 3.9 mmol/L (3.5-5.1) 10/27/23 07:56 10/27/23 Sodium 140 mmol/L (136-145) 10/27/23 07:56 10/27/23 BUN 16 mg/dL (7-18) 10/27/23 07:56 10/27/23 Creatinine 1.06 mg/dL (0.70-1.30) 10/27/23 07:56 10/27/23 Glucose 123 mg/dL (74-106) H 10/27/23 07:56 10/27/23 COAG Pre-Assessment Diagnosis/Proposed Procedure Planned Operative Procedure(s): COLONOSCOPY Anesthesia History Anesthesia History - auto body straightener: Anesthesia History - auto body straightener Hx Hospitalization No 10/01/24 13:30 Any Problems With Anesthesia No 10/01/24 13:30 Cholinesterase deficiency No 10/01/24 13:30 You/Your Family Experience No 10/01/24 13:30 fever (hyperthermia) with Relationship Recent Exposure to Contagious No 10/26/23 06:15 Disease Does patient have nerve No 10/01/24 13:30 stimulator Patient instructed to have device shut off --Does patient have Pacemaker No 10/03/24 07:56 or ICD? When Was Last Pacemaker Check QUESTION #4 FULL TEXT: You/Your Family Experience fever (hyperthermia) with Anesthesia Last Oral Intake Last Oral intake: Last Oral Intake NPO since 04:30 10/03/24 07:56 Meds taken in AM with sips of water? Meds patient instructed to take am of surgery PONV PONV - auto body straightener: PONV - auto body straightener Female No 10/01/24 13:30 HX of Motion Sickness No 10/01/24 13:30 HX of N/V After Surgery No 10/01/24 13:30 Non-Smoker Yes 10/01/24 13:30 Duration of Surgery greater No 10/01/24 13:30 than 60 minutes Number of Risk Factors 1 10/01/24 13:30 PONV Score Low Risk 10/01/24 13:30 Height & Weight Height & Weight: Anesthesia: Height & Weight Height 5 ft 8 in 10/03/24 07:56 Weight: 81 kg 10/03/24 07:56 Body Mass Index (BMI) 27.1 10/03/24 07:56 Respiratory Assessment Respiratory Assessment - auto body straightener: Respiratory Tract Infection Hx - auto body straightener Hx Respiratory Tract Infection No 10/01/24 13:30 STOP Sleep Apnea STOP Sleep Apnea - auto body straightener: STOP Sleep Apnea - auto body straightener Hx Hypertension No 10/01/24 13:30 Hx Sleep Apnea No 10/01/24 13:30 CPAP BIPAP Do you snore loudly (louder No 10/01/24 13:30 than talking or can be heard Do you often feel tired/ No 10/01/24 13:30 fatigued/ sleepy during daytime? Has anyone observed you stop No 10/01/24 13:30 breathing during sleep? STOP Results Negative 10/01/24 13:30 QUESTION #5 FULL TEXT : Do you snore loudly (louder than talking or can be heard through closed doors)? Tobacco Use History Tobacco Use History - auto body straightener: Tobacco Use History - auto body straightener Tobacco Use Smoking Status Former smoker 10/01/24 13:30 Hx Tobacco Use No 10/01/24 13:30 Years Smoking Packs Smoked per Day Smoking Cessation Date was No - quit smoking greater 10/01/24 13:30 within the last 15 years than 15 years ago Hx Smoking Cessation Date Hx Smoking Cessation Counseling Hematologic Medial History Hematologic Hx - auto body straightener: Hematologic Medical Hx - hvac specialist Hx of Blood Transfusion No 10/01/24 13:30 Hx of Transfusion in last 3 No 10/01/24 13:30 Months Date of Last Transfusion (if within last 3 months) Ever experience any problems No 10/01/24 13:30 with transfusion(s)? Specify any problems Hx of Preganancy in last 3 N/A 10/01/24 13:30 Months Nurse Filling Out Transfusion VLEHMAN 10/01/24 13:30 & Questions: Date: 10/01/24 10/01/24 13:30 Time: 13:39 10/01/24 13:30 Patient unable to answer at this time (ie. confused, unrespo /Reproduction History /Reproductive History - auto body straightener: /Reproductive Hx- auto body straightener Hx Now Gestational Age (in weeks): EDC: Hx Hx Para Hx Section SAB PFSH Medical History History of hiatal hernia Hx of adenomatous colonic polyps Family history of colon cancer in mother Wears glasses Depression Hepatitis Back pain Hiatal hernia History of diverticulitis Former smoker History of pain when walking Hx of gastroesophageal reflux (GERD) Home Medications ?Medication ?Instructions ?Recorded ?Last Taken ?Type multivitamin 1 tab PO DAILY 06/22/2312/19 History cholecalciferol (vitamin D3) 25 25 mcg PO DAILY 09/30/24 History mcg (1,000 unit) capsule (Vitamin D3) coenzyme Q10 100 mg capsule 100 mg PO DAILY 10/18/23 0 09/30/24 History (CoQ-10) magnesium 250 mg tablet 250 mg PO DAILY 10/18/2312/19 History Allergy/AdvReac Type Severity Reaction Status Date / Time latex Allergy Severe Itching, Verified 10/03/24 07:55 Blisters Family History Mother Colon cancer Other Hypertension Surgical History History of cataract surgery History of repair of hiatal hernia Status post laparoscopic Xavi fundoplication Hx of colonoscopy History of cystoscopy H/O right knee surgery Social History household members: spouse current occupational status: retired Smoking Status: Former smoker how long ago did patient quit smoking: ~1992 alcohol intake: current substance use type: does not use additional social history: Occasional Aspirin use. Daily Ibuprofen use. Review of Systems (Anesthesia) ROS Narrative System reviewed and no additional complaints, except as documented.
--- NOTE | 2024-10-03 08:38 | H&P.OPEN ---
HPI - General HPI Narrative MARCOS ANDRE, is a 69 M who presents for surveillance colonoscopy. Patient had a colonoscopy last year and a large villous adenoma with dysplasia was removed in a piecemeal fashion. He is here for surveillance colonoscopy 1 year later. He denies abdominal pain or blood in the stool. He has no other changes since last time I saw him. [facility] Medical History History of hiatal hernia Hx of adenomatous colonic polyps Family history of colon cancer in mother Wears glasses Depression Hepatitis Back pain Hiatal hernia History of diverticulitis Former smoker History of pain when walking Hx of gastroesophageal reflux (GERD) Home Medications ?Medication ?Instructions ?Recorded ?Last Taken ?Type multivitamin 1 tab PO DAILY 06/22/23 09/30/24 History cholecalciferol (vitamin D3) 25 25 mcg PO DAILY 10/18/23 09/30/24 History mcg (1,000 unit) capsule (Vitamin D3) coenzyme Q10 100 mg capsule 100 mg PO DAILY 10/18/23 09/30/24 History (CoQ-10) magnesium 250 mg tablet 250 mg PO DAILY 10/18/23 09/30/24 History Allergy/AdvReac Type Severity Reaction Status Date / Time latex Allergy Severe Itching, Verified 10/03/24 07:55 Blisters Family History Mother Colon cancer Other Hypertension Surgical History History of cataract surgery History of repair of hiatal hernia Status post laparoscopic Xavi fundoplication Hx of colonoscopy History of cystoscopy H/O right knee surgery Social History household members: spouse current occupational status: retired Smoking Status: Former smoker how long ago did patient quit smoking: ~1992 alcohol intake: current substance use type: does not use additional social history: Occasional Aspirin use. Daily Ibuprofen use. Past Medical/Surgical History Planned Operation Planned Operative Procedure(s): COLONOSCOPY Previous Hospitalizations/Surgeries HX Hospitalizations: No HX of Surgeries: knee arthroscopy Any Problems With Anesthesia: No You/Your Family Experience Fever (Hyperthermia) With Anes: No Cholinesterase deficiency: No Cardiovascular Hx of Irregular Heartbeat and/or Afib: No Hx Heart Attack: No Hx Congestive Heart Failure: No Hx Hypertension: No Hx Pacemaker: No Respiratory Hx Chronic Obstructive Pulmonary Disease (COPD): No Hx Asthma: No Hx Emphysema: No Hx Sleep Apnea: No Hx Respiratory Tract Infection/Cold (presently): No Do You Snore Loudly (louder than talking or can be heard): No Do You Often Feel Tired/ Fatigued/ Sleepy Dring Daytime?: No Has Anyone Observed You Stop Breathing During Sleep?: No Result (for STOP score): Negative Smoking Status: Former smoker Gastrointestinal Hx Ulcer: No Neurological Hx Seizures: No Hx Head/Neck Injury: Yes Hx Headaches: Yes Hx Back Injury/Pain: No Does patient have nerve stimulator: No Genitourinary Hx Renal Disease: Yes (bleeding kidney in 35 years) Endocrine Hx Diabetes: No Miscellaneous Hx Cancer: No Recent Exposure to Contagious Disease: No Allergies latex Allergy (Severe, Verified 10/03/24 07:55) Itching, Blisters Discharge Is Pt Admitted From a Prison, or a Senior Care: No Who Could Help: After D/C, Where Do you Plan to Go: Return Home From the [facility] History Number of Risk Factors: 1 Vital Signs Vital Signs Vital Signs: 10/03/24 07:56 10/03/24 07:56 10/03/24 08:19 Temperature 97.3 F L 97.3 F L Temperature Source Temporal Pulse Rate 69 69 Respiratory Rate 18 18 Respiratory Pattern Normal Blood Pressure 138/89 H 138/89 H Blood Pressure Mean 105 Blood Pressure Source Monitor Blood Pressure Position Semi-Fowlers Blood Pressure Location Right Arm Pulse Ox 100 100 Oxygen Delivery Method Room Air Weight Weight: 178 lb 9.191 oz Body Mass Index (BMI) 27.1 Physical Exam Const alert and oriented x3 HEENT normocephalic Eyes PERRL Resp normal respiratory effort and normal air movement Cardio regular rate and regular rhythm GI soft to palpation, non-tender and non-distended Extremity normal to inspection Assessment & Plan Assessment/Plan (1) Rectal mass: PLAN: Patient had a history of a large polyp removed last year. Plan for surveillance colonoscopy to evaluate. I explained endoscopy in detail to the patient. I explained the risks including but not limited to stroke or heart attack with anesthesia, perforation of the GI tract, bleeding, infection. I explained that any of these could necessitate further emergency surgery. The patient understands and all questions were answered sufficiently. The patient wishes to proceed with procedure. Shyam Teran MD Pager: [facility] [address] [place] [id number] [address] [place] [address] Office: Surgery Risks - Colonoscopy Risks Include but are not Limited To: Risks include but are not limited to: Bleeding, perforation requiring further surgery, inability to complete colonoscopy requiring barium enema.
--- NOTE | 2024-10-03 09:00 | PCM.POST.ANE ---
Anesthesia: Postop Eval I Current Vital Signs Temperature: 97 F Pulse Rate: 77 Blood Pressure: 116/79 Respiratory Rate: 16 Pulse Ox: 96 Oxygen Delivery Method: Room Air Assessment Airway patent: Yes Spontaneous unlabored respirations: Yes Mental status: Awake and Calm nausea: No Vomiting: No Anesthesia Complication: No Fluid Hydration Crystalloid volume administer (ml): 10 Total IV fluid infused: 10 Progress Note Anesthesia document: Postop Eval 1 completed: Yes
--- NOTE | 2024-10-03 09:01 | POSTOPAN2_ITS ---
Anesthesia Postop Eval I Sum Postop Eval Completion status Anesthesia document: Postop Eval 1 completed: Yes Anesthesia Postop Eval I Summary Anesthesia Postop Eval I Summary: Anesthesia Postop Eval I: Assessment Summary Airway patent Yes 10/03/24 09:01 SPLITTING MACHINE TENDER.[email or web address] Spontaneous unlabored Yes 10/03/24 09:01 SPLITTING MACHINE TENDER.RISSA respirations Mental status Awake,Calm 10/03/24 09:01 SPLITTING MACHINE TENDER.RISSA nausea No 10/03/24 09:01 SPLITTING MACHINE TENDER.RISSA Vomiting No 10/03/24 09:01 SPLITTING MACHINE TENDER.RISSA Anesthesia Postop Eval I: Fluid Summary Crystalloid volume administer 10 10/03/24 09:01 SPLITTING MACHINE TENDER.RISSA (ml) Colloids volume administered ( ml) Blood Product volume administered (ml) Total IV fluid infused 10 10/03/24 09:01 SPLITTING MACHINE TENDER.RISSA Anesthesia Postop Eval I: Summary Notes Anesthesia Complication No 10/03/24 09:01 SPLITTING MACHINE TENDER.RISSA Anesthesia Complication Comment: Post-operative progress note Anesthesia: Postop Eval II Evaluation Mental status: Awake and Calm Pain Level: 0 nausea: No Vomiting: No Complications Anesthesia Complication: No
--- NOTE | 2024-10-03 09:01 | PCM.POSTANE2 ---
Anesthesia Postop Eval I Sum Postop Eval Completion status Anesthesia document: Postop Eval 1 completed: Yes Anesthesia Postop Eval I Summary Anesthesia Postop Eval I Summary: Anesthesia Postop Eval I: Assessment Summary Airway patent Yes 10/03/24 09:01 ON SITE PROPERTY MANAGER.[email or web address] Spontaneous unlabored Yes 10/03/24 09:01 ON SITE PROPERTY MANAGER.RISSA respirations Mental status Awake,Calm 10/03/24 09:01 ON SITE PROPERTY MANAGER.RISSA nausea No 10/03/24 09:01 ON SITE PROPERTY MANAGER.RISSA Vomiting No 10/03/24 09:01 ON SITE PROPERTY MANAGER.RISSA Anesthesia Postop Eval I: Fluid Summary Crystalloid volume administer 10 10/03/24 09:01 ON SITE PROPERTY MANAGER.RISSA (ml) Colloids volume administered ( ml) Blood Product volume administered (ml) Total IV fluid infused 10 10/03/24 09:01 ON SITE PROPERTY MANAGER.RISSA Anesthesia Postop Eval I: Summary Notes Anesthesia Complication No 10/03/24 09:01 ON SITE PROPERTY MANAGER.RISSA Anesthesia Complication Comment: Post-operative progress note Anesthesia: Postop Eval II Evaluation Mental status: Awake and Calm Pain Level: 0 nausea: No Vomiting: No Complications Anesthesia Complication: No
--- NOTE | 2024-10-03 09:02 | OP.COLON_ITS ---
Patient Name: Tio Echols Procedure Date: 10/03/2024 8:39 AM Date of : 1955 Age: 69 Procedure: Colonoscopy Indications: Surveillance: Piecemeal removal of large sessile adenoma last colonoscopy (< 3 yrs) Providers: Shyam Teran MD Referring MD: Nathalie Estrella Md Medicines: Propofol per Anesthesia Patient Profile: This is a 69 year old male. Refer to note in patient chart for documentation of history and physical. Last Colonoscopy: 1 year ago. Complications: No immediate complications. Procedure: Pre-Anesthesia Assessment: - Prior to the procedure, a History and Physical was performed, and patient medications and allergies were reviewed. The patient's tolerance of previous anesthesia was also reviewed. The risks and benefits of the procedure and the sedation options and risks were discussed with the patient. All questions were answered, and informed consent was obtained. Prior Anticoagulants: The patient has taken no anticoagulant or antiplatelet agents. After reviewing the risks and benefits, the patient was deemed in satisfactory condition to undergo the procedure. After I obtained informed consent, the scope was passed under direct vision. Throughout the procedure, the patient's blood pressure, pulse, and oxygen saturations were monitored continuously. The Colonoscope was introduced through the anus and advanced to the cecum, identified by appendiceal orifice and ileocecal valve. The colonoscopy was performed without difficulty. The patient tolerated the procedure well. The quality of the bowel preparation was good. The ileocecal valve, appendiceal orifice, and rectum were photographed. Scope In: 8:49:08 AM Scope Withdrawal Time 0 hours 4 minutes 51 seconds Scope Out: 8:57:54 AM Total Procedure Duration Time 0 hours 8 minutes 46 seconds Findings: The entire examined colon appeared normal on direct and retroflexion views. Impression: - The entire examined colon is normal on direct and retroflexion views. - No specimens collected. Recommendation: - Discharge patient to home. - Resume previous diet. - Continue present medications. - Repeat colonoscopy in 5 years for surveillance. Procedure Code(s): --- Professional --- 30196, Colonoscopy, flexible; diagnostic, including collection of specimen(s) by brushing or washing, when performed (separate procedure) Diagnosis Code(s): --- Professional --- Z86.010, Personal history of colonic polyps CPT copyright 2021 [employer]. All rights reserved. The codes documented in this report are preliminary and upon loss prevention auditor review may be revised to meet current compliance requirements. Shyam Teran MD 10/03/2024 9:01:46 AM This report has been signed electronically. Number of Addenda: 0 Note Initiated On: 10/03/2024 8:39 AM
--- NOTE | 2024-10-03 09:02 | OP.CCLET_ITS ---
10/03/2024 Nathalie Estrella Md Re : Colonoscopy procedure for Tio Echols Dear Sameer This procedure was performed on Thursday, October 03, 2024. My impressions and recommendations are as follows: Impressions : - The entire examined colon is normal on direct and retroflexion views. - No specimens collected. Recommendations : - Discharge patient to home. - Resume previous diet. - Continue present medications. - Repeat colonoscopy in 5 years for surveillance. My findings are described in the full procedure note, which is enclosed. If I can be of further assistance, please feel free to contact me at Doctor phone number(s): , Work: . Sincerely, Shyam Teran MD 10/03/2024 9:01:46 AM This report has been signed electronically.
== END 2024-10-03 09:41 | disposition home or self-care (01) ==
LOC: EN 07:38 → AC 07:40
PROVIDERS: PCP Family Medicine; Referring Provider Family Medicine; Visit Provider Surgery
PROC: 0DJD8ZZ Inspection of Lower Intestinal Tract, Via Natural or Artificial Opening Endoscopic (ICD-10-PCS; CPT 45378; principal; 2024-10-03 08:40)
DX: Z12.11 Encounter for screening for malignant neoplasm of colon (principal); Z87.891 Personal history of nicotine dependence; Z86.0100 Personal history of colon polyps, unspecified
CPT/HCPCS: G0105; A4216